=== PATIENT | female | born 1950 | race Caucasian/White ===

== ENCOUNTER 2021-03-17 17:40 | Inpatient (IN) ==
[2021-03-17] MEDS ORDERED: Furosemide 20 MG TABLET PO PRN (21:09)
[2021-03-17] MEDS: Melatonin 3 MG TABLET PO PRN (22:18)
[2021-03-18] MEDS: *HR* Enoxaparin 40 MG/0.4 ML SYRINGE SQ SCH (06:13)
[2021-03-18 07:01] LABS: Basophils % 0.3 %; Eosinophils # 0.2 K/mcL (0.0-0.6); Eosinophils % 2.1 %; Hematocrit 40.1 % (35.3-44.9); Hemoglobin 12.8 g/dL (11.5-15.4); Immature Granulocytes % 1.4 % (0-4); Lymphocytes # 2.9 K/mcL (0.6-4.6); Mean Corpuscular HGB Conc 31.9 g/dL (31.6-35.5); Mean Corpuscular Hemoglobin 29.2 pg (28.0-33.3); Mean Corpuscular Volume 91.6 fL (83.0-100.0); Mean Platelet Volume 9.2 fL (9.4-12.4); Monocytes # 1.3 K/mcL (0.0-1.3); Neutrophils # 6.9 K/mcL (1.6-8.9); Platelet Count 410 K/mcL (140-400); Red Blood Count 4.38 M/mcL (3.82-4.97); Red Cell Distribution Width 14.9 % (11.5-14.5); Segmented Neutrophils % 60.2 %; White Blood Count 11.5 K/mcL (4.3-11.1)
[2021-03-18 07:12] LABS: BUN/Creatinine Ratio 42 (6-26); Blood Urea Nitrogen 25 mg/dL (8-23); Calcium 9.1 mg/dL (8.6-10.3); Carbon Dioxide 23 mEq/L (23-29); Chloride 102 mEq/L (98-107); Glucose 96 mg/dL (70-105); Osmolality,Calculated 282 (280-300); Potassium 4.2 mEq/L (3.5-5.1); Sodium 134 mEq/L (136-145); eGFR For African Americans > 60 (> 60); eGFR For Non-African Americans > 60 (> 60)
[2021-03-18] MEDS: lisinopriL 20 MG TABLET PO SCH (08:31)
[2021-03-18] MEDS: Spironolactone 25 MG TABLET PO SCH (08:31)
[2021-03-18] MEDS: rOPINIRole 0.25 MG TABLET PO SCH ×2 (08:32→22:34)
[2021-03-18] MEDS: allopurinoL 100 MG TABLET PO SCH (08:32)
[2021-03-18] MEDS: FLUoxetine 20 MG CAPSULE PO SCH (08:32)
[2021-03-18] MEDS: Fluticasone Propionate Nasal 50 MCG/SPRAY BOTTLE NS SCH (08:32)
[2021-03-18] MEDS: atenoloL 50 MG TABLET PO SCH (08:32)
[2021-03-18] MEDS ORDERED: NON-FORMULARY MEDICATION 1 EACH EACH (Turmeric Root Extract [Turmeric] 500 MG Capsule) PO SCH (09:00)
[2021-03-18] MEDS ORDERED: Sennosides/Docusate Sodium TABLET PO PRN (09:54)
[2021-03-18] MEDS: Acetaminophen 325 MG TABLET PO PRN ×2 (10:26→22:40)
[2021-03-18] MEDS: Melatonin 3 MG TABLET PO PRN (22:34)
[2021-03-19] MEDS: *HR* Enoxaparin 40 MG/0.4 ML SYRINGE SQ SCH (06:40)
[2021-03-19] MEDS: *HR* HYDROcodone/Acet 5/325 mg TABLET PO PRN (06:44)
[2021-03-19] MEDS: Sennosides/Docusate Sodium TABLET PO SCH (08:57)
[2021-03-19] MEDS: atenoloL 50 MG TABLET PO SCH (08:57)
[2021-03-19] MEDS: allopurinoL 100 MG TABLET PO SCH (08:57)
[2021-03-19] MEDS: FLUoxetine 20 MG CAPSULE PO SCH (08:57)
[2021-03-19] MEDS: Spironolactone 25 MG TABLET PO SCH (08:57)
[2021-03-19] MEDS: lisinopriL 20 MG TABLET PO SCH (08:57)
[2021-03-19] MEDS: Fluticasone Propionate Nasal 50 MCG/SPRAY BOTTLE NS SCH (08:58)
[2021-03-19] MEDS: rOPINIRole 0.25 MG TABLET PO SCH ×2 (08:58→20:32)
[2021-03-19] MEDS: Acetaminophen 325 MG TABLET PO PRN (20:35)
[2021-03-19] MEDS: Melatonin 3 MG TABLET PO PRN (20:35)
[2021-03-20] MEDS: *HR* HYDROcodone/Acet 5/325 mg TABLET PO PRN (01:26)
[2021-03-20] MEDS: *HR* Enoxaparin 40 MG/0.4 ML SYRINGE SQ SCH (06:06)
[2021-03-20] MEDS: lisinopriL 20 MG TABLET PO SCH (08:11)
[2021-03-20] MEDS: Sennosides/Docusate Sodium TABLET PO SCH (08:11)
[2021-03-20] MEDS: Fluticasone Propionate Nasal 50 MCG/SPRAY BOTTLE NS SCH (08:12)
[2021-03-20] MEDS: atenoloL 50 MG TABLET PO SCH (08:12)
[2021-03-20] MEDS: Acetaminophen 325 MG TABLET PO PRN ×2 (08:12→19:37)
[2021-03-20] MEDS: Spironolactone 25 MG TABLET PO SCH (08:12)
[2021-03-20] MEDS: allopurinoL 100 MG TABLET PO SCH (08:12)
[2021-03-20] MEDS: FLUoxetine 20 MG CAPSULE PO SCH (08:12)
[2021-03-20] MEDS: rOPINIRole 0.25 MG TABLET PO SCH ×2 (08:12→19:36)
[2021-03-20] MEDS: Melatonin 3 MG TABLET PO PRN (19:37)
[2021-03-20] MEDS: Famotidine 20 MG TABLET PO PRN (19:39)
[2021-03-21] MEDS: *HR* Enoxaparin 40 MG/0.4 ML SYRINGE SQ SCH (06:04)
[2021-03-21] MEDS: lisinopriL 20 MG TABLET PO SCH (07:50)
[2021-03-21] MEDS: Sennosides/Docusate Sodium TABLET PO SCH (07:50)
[2021-03-21] MEDS: allopurinoL 100 MG TABLET PO SCH (07:50)
[2021-03-21] MEDS: atenoloL 50 MG TABLET PO SCH (07:51)
[2021-03-21] MEDS: FLUoxetine 20 MG CAPSULE PO SCH (07:51)
[2021-03-21] MEDS: Spironolactone 25 MG TABLET PO SCH (07:51)
[2021-03-21] MEDS: rOPINIRole 0.25 MG TABLET PO SCH ×2 (07:52→19:26)
[2021-03-21] MEDS: Fluticasone Propionate Nasal 50 MCG/SPRAY BOTTLE NS SCH (07:52)
[2021-03-21] MEDS: *HR* HYDROcodone/Acet 5/325 mg TABLET PO PRN (19:26)
[2021-03-21] MEDS: Melatonin 3 MG TABLET PO PRN (19:27)
[2021-03-22] MEDS: *HR* Enoxaparin 40 MG/0.4 ML SYRINGE SQ SCH (06:30)
[2021-03-22] MEDS: Fluticasone Propionate Nasal 50 MCG/SPRAY BOTTLE NS SCH (12:00)
[2021-03-22] MEDS: FLUoxetine 20 MG CAPSULE PO SCH (12:00)
[2021-03-22] MEDS: lisinopriL 20 MG TABLET PO SCH (12:00)
[2021-03-22] MEDS: atenoloL 50 MG TABLET PO SCH (12:00)
[2021-03-22] MEDS: rOPINIRole 0.25 MG TABLET PO SCH ×2 (12:00→19:19)
[2021-03-22] MEDS: Spironolactone 25 MG TABLET PO SCH (12:00)
[2021-03-22] MEDS: Sennosides/Docusate Sodium TABLET PO SCH (12:00)
[2021-03-22] MEDS: allopurinoL 100 MG TABLET PO SCH (12:00)
[2021-03-22] MEDS: Melatonin 3 MG TABLET PO PRN (19:19)
[2021-03-22] MEDS: *HR* HYDROcodone/Acet 5/325 mg TABLET PO PRN (19:19)
[2021-03-22] MEDS: Famotidine 20 MG TABLET PO PRN (19:20)
[2021-03-23] MEDS: *HR* Enoxaparin 40 MG/0.4 ML SYRINGE SQ SCH (05:27)
[2021-03-23 06:54] VITALS: O2SAT 98
[2021-03-23] MEDS: rOPINIRole 0.25 MG TABLET PO SCH ×2 (08:48→19:24)
[2021-03-23] MEDS: allopurinoL 100 MG TABLET PO SCH (08:49)
[2021-03-23] MEDS: Fluticasone Propionate Nasal 50 MCG/SPRAY BOTTLE NS SCH (08:49)
[2021-03-23] MEDS: lisinopriL 20 MG TABLET PO SCH (08:49)
[2021-03-23] MEDS: FLUoxetine 20 MG CAPSULE PO SCH (08:49)
[2021-03-23] MEDS: atenoloL 50 MG TABLET PO SCH (08:49)
[2021-03-23] MEDS: Spironolactone 25 MG TABLET PO SCH (08:49)
[2021-03-23] MEDS: Sennosides/Docusate Sodium TABLET PO SCH (08:49)
[2021-03-23] MEDS: Melatonin 3 MG TABLET PO PRN (19:24)
[2021-03-23] MEDS: *HR* HYDROcodone/Acet 5/325 mg TABLET PO PRN (19:24)
[2021-03-23] MEDS: Famotidine 20 MG TABLET PO PRN (19:24)
[2021-03-24] MEDS: *HR* Enoxaparin 40 MG/0.4 ML SYRINGE SQ SCH (05:25)
[2021-03-24 07:07] VITALS: BP 122/81; PULSE 85; RESP 18; TEMP 98.3
[2021-03-24] MEDS: rOPINIRole 0.25 MG TABLET PO SCH (08:15)
[2021-03-24] MEDS: Fluticasone Propionate Nasal 50 MCG/SPRAY BOTTLE NS SCH (08:15)
[2021-03-24] MEDS: Spironolactone 25 MG TABLET PO SCH (08:15)
[2021-03-24] MEDS: atenoloL 50 MG TABLET PO SCH (08:15)
[2021-03-24] MEDS: lisinopriL 20 MG TABLET PO SCH (08:15)
[2021-03-24] MEDS: allopurinoL 100 MG TABLET PO SCH (08:15)
[2021-03-24] MEDS: FLUoxetine 20 MG CAPSULE PO SCH (08:15)
[2021-03-24] MEDS: Sennosides/Docusate Sodium TABLET PO SCH (08:15)
== END 2021-03-24 15:40 | disposition home health service (06) | DRG 189 ==
LOC: INPPIK 20:58
PROVIDERS: ADMIT Family Medicine; ATTEND Family Medicine